=== PATIENT | female | born 1990 | race Caucasian/White ===

== ENCOUNTER 2017-04-22 23:54 | Inpatient (IN) | payer BC ==
[~2017-04-22] VITALS: Ht 175.3 cm; Wt 83.5 kg
[~2017-04-22 23:54] MED LIST: ATR25 PO; ZLF50 PO
[2017-04-23 00:22] VITALS: Ht 175.3 cm; Wt 83.5 kg
[2017-04-23] MEDS ORDERED: PRENTAB26 PO (00:22)
[2017-04-23] MEDS ORDERED: LACTATED RINGER'S 1000ML 1,000 ML IV PRN (00:26)
[2017-04-23] MEDS: LACTATED RINGER'S 1000ML 1,000 ML IV SCH ×4 (00:52→12:49)
[2017-04-23 01:12] LABS: HEMATOCRIT 32.8 % (37-47); MEAN CELL VOLUME 88.2 fL (80-100); MEAN CORPUSCULAR HEMOGLOBIN 28.5 pg (25-34); MEAN CORPUSCULAR HGB CONC 32.3 g/dl (32-36); PLATELET COUNT 218 K/uL (130-400); RED BLOOD COUNT 3.72 M/uL (4.2-5.4); WHITE BLOOD COUNT 13.51 K/uL (4.8-10.8)
[2017-04-23] MEDS ORDERED: BUTORPHANOL TARTRATE 1 MG/ML VIAL ONE (02:54)
[2017-04-23] MEDS ORDERED: NURSING VERBAL MED ORDER ONE (03:00)
[2017-04-23] MEDS ORDERED: BUTORPHANOL TARTRATE 1 MG/ML VIAL IV PRN (03:15)
[2017-04-23] MEDS ORDERED: EpHEDrine SULFATE INJ 50 MG/ML AMP ONE (04:41)
[2017-04-23] MEDS ORDERED: BUPIVACAINE 0.25% 30 ML VIAL ONE (04:41)
[2017-04-23] MEDS ORDERED: FENTANYL CITRATE INJ 50 MCG/1 ML 2 ML VIAL ONE (04:42)
[2017-04-23] MEDS ORDERED: FENTANYL 2MCG/ML ROPIV 1.25MG/ML 100ML BAG EPI ONE (04:42)
[2017-04-23] MEDS ORDERED: LACTATED RINGER'S 1000ML 500 ML IV PRN ×2 (05:23→11:18)
[2017-04-23] MEDS ORDERED: NALOXONE HCL INJ 1 MG in SODIUM CHLORIDE 0.9% 1000ML 1,000 ML IV PRN (05:23)
[2017-04-23] MEDS ORDERED: PROMETHAZINE HCL INJ 25 MG in SODIUM CHLORIDE 0.9% 50ML 50 ML IV PRN (05:30)
[2017-04-23] MEDS ORDERED: DiphenhydrAMINE HCL 50 MG/ML VIAL IV PRN (05:30)
[2017-04-23] MEDS ORDERED: NALBUPHINE HCL INJ 10 MG/ML AMP IV PRN (05:30)
[2017-04-23] MEDS ORDERED: ONDANSETRON INJ 2 MG/ML 2 ML VIAL IV PRN (05:30)
[2017-04-23] MEDS ORDERED: NALOXONE HCL INJ 0.4 MG/1 ML VIAL/CARP IV PRN (05:30)
[2017-04-23] MEDS ORDERED: FENTANYL 2MCG/ML ROPIV 1.25MG/ML 100ML BAG EPI PRN (05:30)
[2017-04-23] MEDS ORDERED: EpHEDrine SULFATE INJ 50 MG/ML AMP IV PRN (05:30)
[2017-04-23] MEDS: OXYTOCIN 30 UNITS/500ML NSS IV PRN ×2 (11:38→13:33)
[2017-04-23] MEDS ORDERED: METHYLERGONOVINE MALEATE 0.2 MG/ML AMP ONE (13:00)
[2017-04-23] MEDS ORDERED: BENZOCAINE 20% AER SPR 82.5 GM CAN EXT PRN (14:15)
[2017-04-23] MEDS ORDERED: LANOLIN OINT EXT PRN ×2 (14:15)
[2017-04-23] MEDS ORDERED: OXYCODONE/ACETAMINOPHEN 5-325 TAB PO PRN (14:15)
[2017-04-23] MEDS ORDERED: ACETAMINOPHEN 325 MG TAB PO PRN (14:15)
[2017-04-23] MEDS ORDERED: OXYTOCIN 30 UNITS/500ML NSS IV PRN (14:15)
[2017-04-23] MEDS ORDERED: ACETAMINOPHEN/CODEINE 300/30MG TAB PO PRN ×2 (14:15)
[2017-04-23] MEDS ORDERED: SUPERCREAM 0.870 % 15GM JAR EXT PRN (14:15)
--- NOTE | 2017-04-23 14:44 | DELIVERY SUMMARY ---
DATE OF OPERATION: 04/23/2017 DELIVERY NOTE The patient delivered a live female in occiput posterior presentation. There was a loose nuchal cord that was easily reduced. was delivered. Cord was clamped and cut and handed over to the pediatric team. Weight and Apgars in the pediatric records. Placenta was spontaneously delivered. Inspection of the placenta shows a 3-vessel cord. Inspection of the perineum showed a second-degree midline perineal laceration with bilateral vulvar lacerations as well. Repair was performed with 2-0 and 3-0 Vicryl in several layers. There is good hemostasis at end of the repair. Rectal exam post repair showed good sphincter tone. No sutures are palpated in the rectum. Estimated blood loss is 600 mL. Baby and mother are doing well in recovery. I attest to the content of the Intraoperative Record and any orders documented therein. Any exceptions are noted below. BRED
--- NOTE | 2017-04-23 14:55 | Anesthesia Procedure Note ---
Anesthesia Epidural Removal Nt Date & Time Apr 23, 2017 at 14:55 Vital Signs Pain Intensity: 0.0 Notes Mental Status: alert / awake / arousable, participated in evaluation Nausea / Vomiting: adequately controlled Pain: adequately controlled Airway Patency, RR, SpO2: stable & adequate BP & HR: stable & adequate Hydration State: stable & adequate Neuraxial Anesthesia: was administered Anesthetic Complications: no major complications apparent, pt satisfied with anesthetic care Epidural: removed without complications, with tip intact
[2017-04-23 18:45] VITALS: BP 125/76; PULSE 120; TEMP 37
[2017-04-23] MEDS: IBUPROFEN 600 MG TAB PO PRN (20:46)
[2017-04-23] MEDS: DOCUSATE SODIUM 100 MG CAP PO SCH (20:47)
[2017-04-23 23:40] VITALS: BP 117/69; PULSE 100; TEMP 37.1
[2017-04-24 03:00] VITALS: BP 110/71; PULSE 81; TEMP 36.9
[2017-04-24] MEDS: IBUPROFEN 600 MG TAB PO PRN ×3 (05:20→23:26)
[2017-04-24 07:19] VITALS: BP 111/56; PULSE 88; TEMP 36.8; O2SAT 97
[2017-04-24 07:32] LABS: HEMATOCRIT 22.7 % (37-47)
[2017-04-24] MEDS ORDERED: FERROUS SULFATE 325 MG TAB PO SCH (08:00)
[2017-04-24] MEDS: PRENATAL VITAMIN TAB PO SCH (09:06)
[2017-04-24] MEDS: DOCUSATE SODIUM 100 MG CAP PO SCH ×2 (09:06→20:02)
[2017-04-24 11:04] VITALS: BP 115/74; PULSE 92; TEMP 36.8; O2SAT 98
--- NOTE | 2017-04-24 11:22 | OB/GYN Progress Note ---
FELT STRIP FINISHER Progress Note Date of Service Apr 24, 2017. Subjective conversation w/ patient, physical exam Ambulation: ambulating normally Voiding: no voiding problems Passing Gas: Yes Diet Tolerance: Regular Diet Lochia: Small Feeding Type: Breast Feeding Pain: 2/10 Notes: Doing well. Pain well controlled. Tolerating regular diet. Perineum noted to be swollen, not painful or enlarging. Continue with sitz bathes and ice. Ambulating without difficulty. Objective Vital Signs Date Time Temp Pulse Resp B/P (MAP) Pulse Ox O2 Delivery O2 Flow Rate FiO2 04/24/17 11:04 36.8 92 20 115/74 (88) 98 Room Air 04/24/17 08:00 Room Air 04/24/17 07:19 36.8 88 20 111/56 (74) 97 Room Air 04/24/17 03:00 36.9 81 18 110/71 (84) Room Air 04/23/17 23:40 37.1 100 18 117/69 (85) Room Air 04/23/17 23:40 Room Air 04/23/17 18:45 37.0 120 20 125/76 (92) Room Air 04/23/17 18:45 Room Air Physical Exam General Appearance: WELL-APPEARING Respiratory/Chest: chest non-tender, lungs clear Cardiovascular: regular rate, rhythm Abdomen: normal bowel sounds, soft Fundus: Firm Extremities: normal range of motion, non-tender, no calf tenderness Laboratory Results Last 24 Hours Test 04/24/17 06:56 Hemoglobin 7.3 g/dL Hematocrit 22.7 % Assessment and Plan Post- Day Number: 1 Continue Routine Care: -Continue routine care -Perineum swollen, continue with ice and sitz bathes, not enlarging, continue to monitor. -Anticipate d/c home tomorrow.
[2017-04-24 15:30] VITALS: BP 132/78; PULSE 98; TEMP 36.6
[2017-04-24] MEDS ORDERED: BISACODYL 5 MG TABEC PO SCH (20:00)
[2017-04-24 23:15] VITALS: BP 113/71; PULSE 98; TEMP 36.8
[2017-04-25] MEDS ORDERED: BISACODYL 10 MG SUPP PR PRN (07:00)
[2017-04-25 07:33] LABS: HEMATOCRIT 21.2 % (37-47); MEAN CELL VOLUME 90.2 fL (80-100); MEAN CORPUSCULAR HEMOGLOBIN 30.2 pg (25-34); MEAN CORPUSCULAR HGB CONC 33.5 g/dl (32-36); MEAN PLATELET VOLUME 10.8 fL (7.4-10.4); PLATELET COUNT 186 K/uL (130-400); RED BLOOD COUNT 2.35 M/uL (4.2-5.4); WHITE BLOOD COUNT 15.39 K/uL (4.8-10.8)
[2017-04-25] MEDS ORDERED: FERROUS SULFATE 325 MG TAB PO SCH (08:00)
[2017-04-25 08:10] VITALS: BP 120/73; PULSE 97; TEMP 36.7; O2SAT 99
--- NOTE | 2017-04-25 08:24 | OB/GYN Progress Note ---
REJECTED ITEMS CLERK Progress Note Date of Service: Apr 25, 2017. Patient is seen and examined. She feels well, no complaints. Ambulating without dizziness Voiding without difficulty Tolerating regular diet with out N&V Bleeding is minimal No fever/ chills/ CP/ SOB/ N&V/ Leg pain Date Time Temp Pulse Resp B/P (MAP) Pulse Ox O2 Delivery O2 Flow Rate FiO2 04/24/17 23:15 36.8 98 18 113/71 (85) Room Air 04/24/17 23:15 Room Air 04/24/17 15:30 Room Air 04/24/17 15:30 36.6 98 16 132/78 (96) Room Air 04/24/17 11:04 36.8 92 20 115/74 (88) 98 Room Air PE: General: Alert, orientedx3, NAD Abd: soft, NT, fundus firm, below Umbilicus Perineum intact, Lochia rubra minimal Ext; NT, no edema Test 04/23/17 01:03 04/24/17 06:56 04/25/17 06:47 White Blood Count 13.51 H 15.39 H Red Blood Count 3.72 L 2.35 L Hemoglobin 10.6 L 7.3 #L 7.1 L Hematocrit 32.8 L 22.7 L 21.2 L Mean Corpuscular Volume 88.2 90.2 Mean Corpuscular Hemoglobin 28.5 30.2 Mean Corpuscular Hemoglobin Concent 32.3 33.5 RDW Standard Deviation 44.4 47.3 H RDW Coefficient of Variation 13.8 14.5 Platelet Count 218 186 Mean Platelet Volume 11.0 H 10.8 H Nucleated RBC Absolute Count (auto) 0.03 H Nucleated Red Blood Cells % 0.2 AP: 27 yo s/p , ppd# 2 VSS Afebrile doing well Anemic: asymptomatic Discussed the risks of anemia and treatment options Discussed blood transfusion and given her form to review She likes to await for now and decide later Will start iron bid with orange juice Repeat H&H at noon Continue care All questions were answered
[2017-04-25] MEDS: DOCUSATE SODIUM 100 MG CAP PO SCH (08:30)
[2017-04-25] MEDS: PRENATAL VITAMIN TAB PO SCH (08:30)
[2017-04-25 12:30] LABS: HEMATOCRIT 22.6 % (37-47)
--- NOTE | 2017-04-25 14:42 | OB/GYN Progress Note ---
HUMAN RESOURCES PARTNER Progress Note Date of Service: Apr 25, 2017. H&H is stable She desires to go home with iron Instructions were given how to use and discusses iron rich food
[2017-04-25] MEDS ORDERED: CLC100 PO (14:43)
[2017-04-25] MEDS ORDERED: FRRS300 PO (14:43)
[2017-04-25] MEDS ORDERED: MTR600X PO (14:43)
--- NOTE | 2017-04-25 14:44 | Discharge Instructions ---
Discharge Instructions Date of Service Apr 25, 2017. Admission Reason for Admission: Active Labor At Term Discharge Discharge Diagnosis / Problem: Discharge Goals Goal(s): Routine recovery after delivery Medications Continue Dispensed Medications: lansinoh, other Activity Recommendations Activity Limitations: as noted below Lifting Limitations: gradually increase as tolerated Exercise/Sports Limitations: until after follow-up appointment May Resume Sexual Activity: after follow-up appointment Shower/Bathe: no limitations Driving or Machine Use: ACTIVITY RECOMMENDATIONS: * Gradual return to full activity over the next 2-3 weeks. * No lifting - nothing heavier than baby over the next 2-3 weeks. * Do not engage in vigorous exercise, sexual activity or sports until cleared by your physician. * Do not drive or operate any motorized equipment until cleared by your physician. * You may shower/bathe daily. BREAST CARE: If you are not breast feeding: * Wear a supportive bra 24 hours a day for one to two weeks. * Avoid stimulating your breasts and nipples as much as possible during the first few weeks after delivery. * When taking a shower, have the warm water hit your back, not breasts. * When your breasts feel full, apply ice packs. Usually three to four times a day helps ease the discomfort. * Take a mild pain medication (Tylenol/Motrin) when you are uncomfortable. If breast feeding: * Use breast milk to lubricate nipples. Lansinoh cream may be used for sore nipples. You do not need to remove cream prior to breast feeding. If using a different brand of cream, check the label for directions regarding removal of cream prior to nursing. * Wear a supportive bra. * If having problems with breasts or breast feeding, call a distributor sales consultant or your health care provider. EPISIOTOMY CARE: After delivery, if you have an episiotomy (stitches), the following steps will ease discomfort and aid healing. * For the first 24 hours after delivery, place ice packs next to your episiotomy to help reduce swelling. * After the first 24 hour-period, sitz baths, either portable or in the tub, are suggested. A shower with a shower arm sprayed over the episiotomy may be comforting. * Mery care should be done after each voiding and bowel movement. Squirt warm water from a plastic bottle over the perineum (region of the body between the anus and urinary opening) and pat dry. * Use Dermoplast to ease discomfort. Shake container. Bowlus directly over the episiotomy. * Place a Tucks on a clean sanitary pad next to your episiotomy. OVER THE COUNTER MEDICATION: * For discomfort or pain, you may use Acetaminophen (Tylenol), Ibuprofen (Advil ), or Naproxen (Aleve) following the package directions. * For constipation you may use Colace following the package directions. SPECIAL CARE INSTRUCTIONS: When you are discharged from the hospital, it is important for you to follow the instructions listed below: * During the first week at home, you should be able to care for yourself and your baby. In addition, the usual light household activities are encouraged. * Limit your activities to the way you feel. Do not try to clean the house or move furniture. Be sensible. * If you actively engage in sports and have done so up until the time of your delivery, you may resume these activities as soon as you feel able. This may take up to one month or even longer. Use good judgment. * Continue to take your vitamins for at least six weeks after the of your baby. * Your diet need not be limited unless you were on a special diet before your delivery. Breast-feeding mothers need around 2500 calories per day and at least 64-80 ounces of fluid per day (8 to 10 glasses). * You should eat foods from the four major food groups. Crash diets or fad diets are to be avoided. Eating lean meats, fresh fruits and vegetables, low-fat dairy products, high fiber foods and a regular exercise program, will help you get back to your pre- weight without putting your health at risk. * Constipation is sometimes a problem after delivery. Take a mild laxative as needed. If breast feeding, Milk of Magnesia is acceptable to use. You may use a suppository or Fleets enema if no episiotomy. * A daily shower or tub bath is suggested. Be sure to thoroughly and gently dry the perineum. * A bloody vaginal discharge will usually continue until around four weeks post . A small amount of bleeding may continue for as long as six weeks. Vaginal discharge changes from the bright red bleeding after delivery to pink then brownish and finally yellowish-pink before becoming white and disappearing. * Bleeding may increase with activity. Your first period may come in 4-8 weeks. If you are breast feeding, your period may be delayed even longer. * [place] (sex) can begin whenever both you and your partner feel comfortable and do not have any form of genital infection. It is recommended that you wait until after your return appointment and discuss with your physician. If you have questions, please talk to your health care practitioner. A condom should be used to prevent infection and . * Foreplay, gentle intercourse and lubrication is very important the first several times to prevent pain. A water-based lubricant such as K-Y jelly or Astroglide may be used. * Tampons may be used six weeks after delivery. * Douching should be avoided for 6 weeks after delivery. * If you have RH negative blood and your baby is RH positive, you will receive RHOGAM by injection prior to discharge. The nurse will give you a card to keep with you that has the date and place that you received RHOGAM after delivery. * During your care, you had a Rubella screen done to check for the presence of rubella antibodies in your blood. If your test was negative, you will receive a Rubella vaccine prior to discharge. This vaccine may cause a fever, soreness at the injection site and flu-like symptoms. If these symptoms persist, notify your health care practitioner. is not advised for three months after a Rubella vaccine. There is a higher chance of having a baby with defects if conceived within three months of getting the vaccine. * If you were discharged 24 hours from delivery or before 48 hours: Visiting nurses will come to your home 48 hours after discharge to assess you and your baby. The visiting nurse will meet with you while you are in the hospital to arrange a time and get directions to your home. * Verbalizes understanding of car seat law as reviewed with patient nursing. * Car Seat hand-out given and reviewed with patient by nursing. * Shaken baby information reviewed with patient by nursing. Call you doctor if: * Heavy bleeding (saturating several pads an hour) or passing clots the size of your fist. * A fever >101 degrees F (38.3 degrees C) on two occasions four hours apart and/or chills. * Unusual pain in the pelvic or vaginal areas. * "Baby Blues" lasting longer than two weeks. If you have any questions or concerns, call your health care practitioner at . FOLLOW-UP VISIT: * Please call the office at to schedule a 6 week examination. It is important you keep this appointment. * It is important for you to make arrangements for either yearly or twice yearly check-ups thereafter. . Current Hospital Diet Patient's current hospital diet: Regular OB Diet Discharge Diet Recommended Diet: Regular Diet (IRON RICH DIET) Pending Studies Studies pending at discharge: no Medical Emergencies . Who to Call and When: Medical Emergencies: If at any time you feel your situation is an emergency, please call 911 immediately. . Non-Emergent Contact Non-Emergency issues call your: Surgeon Call Non-Emergent contact if: temperature is above 100.5, your pain is not controlled, your pain is worsening, wound has increased drainage, wound has increased redness . . "Provider Documentation" section prepared by Socorro Carranza. . VTE Core Measure Inpt VTE Proph given/why not?: Treatment not indicated
[2017-04-25 15:20] VITALS: BP_DIAS 73; PULSE 97; TEMP 36.7
== END 2017-04-25 16:19 | disposition home or self-care (01) | DRG 775 ==
LOC: C.OPB 23:54 → C.LD 23:55 → C.OPB 04-23 00:29 → C.OBG 04-23 18:30
PROVIDERS: ADMIT Obstetrics & Gynecology; ATTEND Obstetrics & Gynecology
PROC: 10E0XZZ Delivery of Products of Conception, External Approach (ICD-10-PCS; principal; 2017-04-23)
PROC: 0KQM0ZZ Repair Perineum Muscle, Open Approach (ICD-10-PCS; principal; 2017-04-23)
DX: O70.1 Second degree perineal laceration during delivery (principal); O69.81X0 Labor and delivery complicated by cord around neck, without compression, not applicable or unspecified; O99.02 Anemia complicating childbirth; D64.9 Anemia, unspecified; Z3A.40 40 weeks gestation of pregnancy; Z37.0 Single live birth